=== PATIENT | male | born 1945 | race Caucasian/White ===

== ENCOUNTER → 2016-11-08 | Outpatient (CLI) | payer MEDICARE ==
--- NOTE | 2016-11-08 13:28 | REP ---
THORACIC SPINE, THREE VIEWS: HISTORY: Back pain. There is no acute fracture or subluxation. There is an old compression fracture of a mid thoracic vertebral body with minimal height loss. The intervertebral discs are normal in height. IMPRESSION: There is no acute fracture or subluxation. Signed by Ricki Son MD 11/08/2016 01:31 P
== END ==
LOC: M RAD 12:26
PROVIDERS: ATTEND Physician Assistant
DX: M54.6 Pain in thoracic spine (principal)

== ENCOUNTER → 2017-01-15 | Outpatient (REF) | payer MEDICARE ==
[2017-01-15 19:15] LABS: BLOOD UREA NITROGEN 21 MG/DL (7-18); CREATININE FOR GFR 0.95 MG/DL (0.70-1.30); GLOMERULAR FILTRATION RATE > 60.0 (>42)
== END ==
LOC: M LAB REF 10:32
PROVIDERS: ATTEND Internal Medicine Pulmonary Disease
DX: J43.1 Panlobular emphysema (principal)

== ENCOUNTER → 2017-01-15 | Outpatient (REF) | payer MEDICARE ==
[~2017-01-15] MED LIST: ALBU17IN PO; BACT800T5 PO; FLUT22IN; FLUT22IN INH; LUPR45IN SC; OMEP20CA3; OMEP20CA3 PO; PRED10TA PO; SPIR12.9; SPIR12.9 INH; ZITHTAB PO
[2017-01-15 18:19] LABS: BASO % 0.5 % (0.0-1.0); EOS % 0.7 % (0.0-3.0); LARGE UNSTAINED CELL # 0.2 K/mm3 (0.0-0.4); LARGE UNSTAINED CELL % 2.2 % (0.0-4.0); LYMPH # 1.9 K/mm3 (1.5-4.5); LYMPH % 24.5 % (24.0-44.0); MEAN CORPUSCULAR HEMOGLOBIN 28.4 pg (27.0-33.0); MEAN CORPUSCULAR HGB CONC 31.3 g/dl (32.0-36.5); MEAN CORPUSCULAR VOLUME 90.5 fl (80.0-96.0); MONO # 0.5 K/mm3 (0.0-0.8); MONO % 6.8 % (0.0-5.0); NEUTROPHILS % 65.3 % (36.0-66.0); PLATELET COUNT, AUTOMATED 143 k/mm3 (150-450); WHITE BLOOD COUNT 7.7 K/mm3 (4.0-10.0)
[2017-01-15 19:18] LABS: ALBUMIN 3.6 GM/DL (3.2-5.2); ALBUMIN/GLOBULIN RATIO 1.33 (1.00-1.93); ALKALINE PHOSPHATASE 78 U/L (45-117); ALT/SGPT 29 U/L (12-78); ANION GAP 5 MEQ/L (8-16); AST/SGOT 15 U/L (15-37); BILIRUBIN,TOTAL 0.5 MG/DL (0.2-1.0); BLOOD UREA NITROGEN 21 MG/DL (7-18); CALCIUM LEVEL 9.8 MG/DL (8.8-10.2); CARBON DIOXIDE LEVEL 38 MEQ/L (21-32); CHLORIDE LEVEL 101 MEQ/L (98-107); CHOLESTEROL LEVEL 225 MG/DL (<200); CREATININE FOR GFR 0.93 MG/DL (0.70-1.30); FREE T4 0.99 NG/DL (0.76-1.46); GLOMERULAR FILTRATION RATE > 60.0 (>42); GLUCOSE, FASTING 92 MG/DL (83-110); POTASSIUM SERUM 4.3 MEQ/L (3.5-5.1); SODIUM LEVEL 144 MEQ/L (136-145); TOTAL PROTEIN 6.3 GM/DL (6.4-8.2); TRIGLYCERIDES LEVEL 122 MG/DL (<150)
== END ==
LOC: M SFHCCAPE 09:44
PROVIDERS: ATTEND Physician Assistant
DX: E66.1 Drug-induced obesity (principal); E55.9 Vitamin D deficiency, unspecified; Z79.52 Long term (current) use of systemic steroids; Z79.891 Long term (current) use of opiate analgesic; Z79.899 Other long term (current) drug therapy
CPT/HCPCS: 80053; 80061; 82565; 84439; 84443; 84520; 85025; G0463

== ENCOUNTER → 2017-02-17 | Outpatient (REF) | payer MEDICARE | LOC: M LAB REF 16:41 | PROVIDERS: ATTEND Urology | DX: C61 Malignant neoplasm of prostate (principal) ==

== ENCOUNTER 2017-02-27 12:39 | Inpatient (IN) | payer MEDICARE ==
[~2017-02-27] VITALS: Ht 170.2 cm; Wt 74.1 kg
[2017-02-27] MEDS ORDERED: OMEP20CA3 (12:54)
[2017-02-27] MEDS ORDERED: LUPR45IN SC (12:54)
[2017-02-27] MEDS ORDERED: BACT800T5 PO (12:54)
[2017-02-27] MEDS ORDERED: PRED10TA PO (12:54)
[2017-02-27] MEDS ORDERED: SPIR12.9 (12:54)
[2017-02-27] MEDS ORDERED: ALBU17IN PO (12:54)
[2017-02-27] MEDS ORDERED: FLUT22IN (12:54)
[2017-02-27] MEDS ORDERED: methylPREDNISolone INJ 125 MG/2 ML VIAL (J2930) IV ONE (13:00)
[2017-02-27] MEDS: IPRATROPIUM 0.5MG/ALBUTEROL 2.5MG INH SOL UD 3ML (DUONEB)(J7620) NEB PRN ×2 (13:22→13:31)
[2017-02-27 13:23] LABS: BASO % 0.4 % (0.0-1.0); EOS % 0.5 % (0.0-3.0); LARGE UNSTAINED CELL # 0.1 K/mm3 (0.0-0.4); LARGE UNSTAINED CELL % 0.6 % (0.0-4.0); LYMPH % 8.3 % (24.0-44.0); MEAN CORPUSCULAR HEMOGLOBIN 29.8 pg (27.0-33.0); MEAN CORPUSCULAR HGB CONC 33.6 g/dl (32.0-36.5); MEAN CORPUSCULAR VOLUME 88.7 fl (80.0-96.0); MONO # 0.4 K/mm3 (0.0-0.8); MONO % 3.3 % (0.0-5.0); NEUTROPHILS # 10.2 K/mm3 (1.8-7.7); NEUTROPHILS % 86.9 % (36.0-66.0); PLATELET COUNT, AUTOMATED 193 k/mm3 (150-450); RED CELL DISTRIBUTION WIDTH 13.6 % (11.5-14.5); WHITE BLOOD COUNT 11.7 K/mm3 (4.0-10.0)
[2017-02-27 13:31] LABS: ABG BASE EXCESS 3.1 (-2.0-2.0); ABG HCO3 28.3 MEQ/L (22.0-26.0); ABG PARTIAL PRESSURE CO2 45.2 mmHg (35.0-45.0); ABG PARTIAL PRESSURE O2 145.9 mmHg (75.0-100.0); ABG STANDARD HCO3 27.3 MEQ/L (22.0-26.0); ABG TOTAL CO2 29.7 MEQ/L (23.0-31.0); ABG pH (ARTERIAL) 7.414 UNITS (7.350-7.450)
[2017-02-27 13:37] LABS: ANION GAP 8 MEQ/L (8-16); BLOOD UREA NITROGEN 25 MG/DL (7-18); CALCIUM LEVEL 9.1 MG/DL (8.8-10.2); CARBON DIOXIDE LEVEL 30 MEQ/L (21-32); CHLORIDE LEVEL 102 MEQ/L (98-107); CREATININE FOR GFR 1.09 MG/DL (0.70-1.30); GLOMERULAR FILTRATION RATE > 60.0 (>42); GLUCOSE, FASTING 147 MG/DL (83-110); POTASSIUM SERUM 4.4 MEQ/L (3.5-5.1); SODIUM LEVEL 140 MEQ/L (136-145)
[2017-02-27 13:42] LABS: ALBUMIN 3.6 GM/DL (3.2-5.2); ALBUMIN/GLOBULIN RATIO 1.09 (1.00-1.93); ALKALINE PHOSPHATASE 88 U/L (45-117); ALT/SGPT 27 U/L (12-78); AST/SGOT 13 U/L (15-37); BILIRUBIN,DIRECT < 0.1 MG/DL (0.0-0.2); BILIRUBIN,TOTAL 0.4 MG/DL (0.2-1.0); TOTAL PROTEIN 6.9 GM/DL (6.4-8.2)
--- NOTE | 2017-02-27 13:57 | REP ---
CHEST, PORTABLE: AP portable view of the chest is performed and compared to prior study of 06/26/2015. There is chronic interstitial fibrosis, which appears stable. There is no acute infiltrate. Heart is normal in size. There is mild calcification of thoracic aorta. Mediastinal silhouette is unchanged. IMPRESSION: Stable chronic findings without evidence of acute infiltrate. Signed by Mat Joseph MD 02/27/2017 04:22 P
[2017-02-27] MEDS ORDERED: SPIR12.9 INH (15:19)
[2017-02-27] MEDS ORDERED: OMEP20CA3 PO (15:19)
[2017-02-27] MEDS ORDERED: FLUT22IN INH (15:19)
[2017-02-27] MEDS ORDERED: ALBUTEROL SULFATE 2.5 MG/0.5 ML INH NEB SOLN NEB PRN (15:45)
[2017-02-27] MEDS ORDERED: ISOVUE-370 76% 100ML VIAL (Q9967) As Ordered ONE (15:52)
[2017-02-27] MEDS ORDERED: ACETAMINOPHEN TAB 650MG DOSE (2X325MG) PO PRN (16:00)
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
[2017-02-27] MEDS ORDERED: AZITHROMYCIN INJ 500 MG, VIAL MATE ADAPTER 1 EACH in D5W 250 ML IV SCH (17:00)
--- NOTE | 2017-02-27 18:28 | REP ---
CT ANGIO CHEST: REASON: History of malignancy. Now experiencing acute respiratory distress, rule out pulmonary embolus. COMPARISON: 06/26/2015. CONTRAST: 100 mL Isovue-370. There is excellent visualization of the pulmonary arterial vasculature. There are no focal filling defects present that would be considered consistent with acute pulmonary emboli. There are no pleural or pericardiac effusions. There is no change in appearance of the imaged upper abdomen or imaged osseous structures. Evaluation of the lung garcia again shows emphysematous and fibrotic changes status quo and showing no evidence of a new abnormal nodule, mass, or opacity. There is chronic biapical pleural parenchymal scarring. IMPRESSION: 1. No evidence of a pulmonary embolus. 2. Marked chronic changes having a stable appearance. Signed by Khadar Woodruff DO 02/28/2017 11:59 A
[2017-02-27 18:59] VITALS: BP 191/89
[2017-02-27 20:12] VITALS: BP 134/84
[2017-02-27] MEDS: predniSONE 20 MG TAB PO SCH (20:52)
[2017-02-27] MEDS: cefTRIAXone SOD 2 GM in D5W MINI-BAG PLUS 50 ML IV SCH (20:52)
[2017-02-27] MEDS: NS 1,000 ML IV SCH (20:53)
[2017-02-27] MEDS: FLUTICASONE HFA 220 MCG 12 GM INHALER (FLOVENT) INH SCH (21:00)
[2017-02-27] MEDS ORDERED: ADVAIR DISKUS 250/50 INH PWD INH SCH (21:00)
[2017-02-28] VITALS: BP 130/83
[2017-02-28 04:00] VITALS: BP 141/83
[2017-02-28 04:54] LABS: MEAN CORPUSCULAR HEMOGLOBIN 29.3 pg (27.0-33.0); MEAN CORPUSCULAR HGB CONC 33.1 g/dl (32.0-36.5); MEAN CORPUSCULAR VOLUME 88.7 fl (80.0-96.0); RED CELL DISTRIBUTION WIDTH 13.5 % (11.5-14.5); WHITE BLOOD COUNT 10.1 K/mm3 (4.0-10.0)
[2017-02-28 05:17] LABS: ANION GAP 3 MEQ/L (8-16); BLOOD UREA NITROGEN 24 MG/DL (7-18); CALCIUM LEVEL 8.4 MG/DL (8.8-10.2); CARBON DIOXIDE LEVEL 35 MEQ/L (21-32); CHLORIDE LEVEL 101 MEQ/L (98-107); GLOMERULAR FILTRATION RATE > 60.0 (>42); GLUCOSE, FASTING 137 MG/DL (83-110); POTASSIUM SERUM 4.5 MEQ/L (3.5-5.1); SODIUM LEVEL 139 MEQ/L (136-145)
[2017-02-28] MEDS: cefTRIAXone SOD 2 GM in D5W MINI-BAG PLUS 50 ML IV SCH (05:21)
[2017-02-28 07:10] VITALS: BP 138/92
[2017-02-28] MEDS ORDERED: OMEPRAZOLE 20 MG CAP PO SCH (09:00)
[2017-02-28] MEDS: predniSONE 20 MG TAB PO SCH (09:00)
[2017-02-28] MEDS ORDERED: ENOXAPARIN 40 MG/0.4 ML SYRINGE (J1650) SC SCH (09:00)
--- NOTE | 2017-02-28 09:30 | ECGEPIP ---
Stationary ECG Study [facility] - ED Test Date: 2017-02-27 Pat Name: SANG DOLAN Department: Room: - Gender: M Java [id number] Lead: VISHAL : 1945 Requested By: KAUSHAL CUBAP Order Number: [id number] Reading MD: Charlene Keys Measurements Intervals [place] Rate: 119 P: 76 CO: 164 QRS: -20 QRSD: 94 T: 65 QT: 300 QTc: 422 Interpretive Statements SINUS TACHYCARDIA POSSIBLE INFERIOR MYOCARDIAL INFARCTION, PROBABLY OLD ABNORMAL RHYTHM ECG LOW VOLTAGE LIMB NSTTW ABNORMALITY INCREASED RATE 06/27/15 Electronically Signed On 02-28-2017 9:30:42 EDT by Charlene Keys
[2017-02-28] MEDS: NS 1,000 ML IV SCH (09:57)
[2017-02-28] MEDS ORDERED: ZITHTAB PO (10:14)
[2017-02-28] MEDS ORDERED: PRED10TA PO (10:14)
[2017-02-28] MEDS: FLUTICASONE HFA 220 MCG 12 GM INHALER (FLOVENT) INH SCH (11:24)
--- NOTE | 2017-03-01 22:59 | DSES ---
DATE OF ADMISSION: 02/27/2017 DATE OF DISCHARGE: 02/28/2017 DISCHARGE DIAGNOSES 1. Chronic obstructive pulmonary disease exacerbation. 2. History of prostate cancer, status post prostatectomy and radiation. 3. History of bladder cancer. 4. Chronic hypoxic respiratory failure requiring 2 liters of nasal cannula at baseline. DISCHARGE MEDICATIONS - azithromycin 250 mg by mouth daily - Ventolin inhaler two puffs every 4 hours as needed - Flovent two puffs inhaled twice daily - Lupron one dose as directed - omeprazole 20 mg by mouth daily - Spiriva 2.5 mcg two puffs inhaled daily - Bactrim DS one tablet by mouth three times a week - prednisone taper BRIEF HOSPITAL COURSE: The patient presented with complaints of increased shortness of breath. At baseline he uses 2 liters of nasal cannula. He did not have any symptoms of cough, sputum production, chest pain, shortness of breath, lightheadedness, dizziness, fevers, chills on presentation. No gastrointestinal (GI) or genitourinary () symptoms. The patient was admitted to the floor for closer monitoring. He was given higher dose of prednisone as well as antibiotics. He was given fluids. On day of discharge, the patient reports that he felt significantly better. He reported that his breathing was back to baseline. No fevers, chills, chest pain/pressure, nausea, vomiting, lightheadedness, dizziness, diarrhea, abdominal pain. No urinary complaints. The patient reported that he felt well enough to go home. LABORATORY DATA: WBC 10.1, hemoglobin 11.7, hematocrit 35.4, platelet count 163. Sodium 139, potassium 4.5, chloride 101, carbon dioxide 35, anion gap 3, BUN 24, creatinine 0.9, GFR greater than 60, fasting glucose 137, calcium 8.4. Microbiology: Respiratory panel was negative. Blood cultures pending. IMAGING STUDIES: The patient had a chest x-ray, which revealed chronic interstitial fibrosis, which was stable. No acute infiltrate. Mild calcification of thoracic aorta. CT angiogram showed no evidence of pulmonary embolism. Marked chronic changes that were stable. PHYSICAL EXAMINATION: VITAL SIGNS: Temperature 98.3, pulse 101, respiratory rate 20, blood pressure 138/92, pulse oximetry 98% on 2 liters. GENERAL: The patient is awake and alert in no acute distress. HEENT: Normocephalic, atraumatic. Extraocular muscles are intact. Pupils are reactive to light. No scleral icterus. Moist mucosa. NECK: Supple. No cervical lymphadenopathy. No thyromegaly. No jugular venous distension. HEART: Normal S1, S2, regular. No murmur appreciated. LUNGS: Fair air movement bilaterally. No rhonchi or wheezing appreciated. ABDOMEN: Soft, nontender. Positive bowel sounds. No rebound, guarding or rigidity. EXTREMITIES: No cyanosis or edema. Positive pedal pulses bilaterally. SKIN: Warm and dry. No rashes noted. NEUROLOGIC: No focal deficits. Cranial nerves: II-XII are grossly intact. Motor and sensation intact. Alert and oriented times three. DISCHARGE INSTRUCTIONS: The patient is discharged in stable condition. He should followup with his primary care physician within 1 week. The patient reports that he is going out of town and will make his own appointment for his primary care provider. He has an upcoming appointment with Dr. Gamble on March 25. He should be on a COPD diet. Activity as tolerated. Return to emergency department with any worsening or recurring symptoms. THINGS TO FOLLOWUP ON: Patient had blood cultures that are pending. He was on a prednisone taper previous to this admission. Taper has been adjusted. 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 TIME SPENT ON DISCHARGE: Greater than 30 minutes and of the patient.
== END 2017-02-28 13:17 | disposition home or self-care (01) | DRG 189 ==
LOC: M ED 13:54 → M ED INP 15:40 → M PCU 18:44
PROVIDERS: ADMIT Internal Medicine; ATTEND Internal Medicine
DX: J96.11 Chronic respiratory failure with hypoxia (principal); J44.1 Chronic obstructive pulmonary disease with (acute) exacerbation; Z85.46 Personal history of malignant neoplasm of prostate; Z85.51 Personal history of malignant neoplasm of bladder; Z92.3 Personal history of irradiation; Z90.79 Acquired absence of other genital organ(s); Z79.899 Other long term (current) drug therapy; Z87.891 Personal history of nicotine dependence; Z66 Do not resuscitate

== ENCOUNTER → 2017-06-26 | Outpatient (REF) | payer MEDICARE ==
[~2017-06-26] MED LIST changes: +ALBU83IN INH; +GABA-282 PO; -PRED10TA PO; +PRED10TA2 PO; +PRED20TA PO; +PYRI1TAB5 PO
== END ==
LOC: M LAB REF 13:31
PROVIDERS: ATTEND Urology
DX: C67.9 Malignant neoplasm of bladder, unspecified (principal); C61 Malignant neoplasm of prostate

== ENCOUNTER → 2017-06-26 | Outpatient (REF) | payer MEDICARE ==
[2017-06-26 18:07] LABS: ALBUMIN 3.7 GM/DL (3.2-5.2); ALBUMIN/GLOBULIN RATIO 1.28 (1.00-1.93); ALKALINE PHOSPHATASE 117 U/L (45-117); ALT/SGPT 24 U/L (12-78); ANION GAP 7 MEQ/L (8-16); AST/SGOT 13 U/L (15-37); BILIRUBIN,TOTAL 0.4 MG/DL (0.2-1.0); BLOOD UREA NITROGEN 19 MG/DL (7-18); CALCIUM LEVEL 9.1 MG/DL (8.8-10.2); CARBON DIOXIDE LEVEL 33 MEQ/L (21-32); CHLORIDE LEVEL 100 MEQ/L (98-107); CREATININE FOR GFR 0.96 MG/DL (0.70-1.30); GLOMERULAR FILTRATION RATE > 60.0 (>42); GLUCOSE, FASTING 125 MG/DL (83-110); POTASSIUM SERUM 4.4 MEQ/L (3.5-5.1); SODIUM LEVEL 140 MEQ/L (136-145); TOTAL PROTEIN 6.6 GM/DL (6.4-8.2)
[2017-06-26 18:08] LABS: MYOGLOBIN 76 NG/ML (16-116)
== END ==
LOC: M SFHCCAPE 17:42
PROVIDERS: ATTEND Physician Assistant
DX: R07.9 Chest pain, unspecified (principal); G89.29 Other chronic pain; C61 Malignant neoplasm of prostate
CPT/HCPCS: 80053; 82550; 82553; 83874; 84153; 84484; G0463

== ENCOUNTER 2017-07-18 18:49 | Emergency (ER) | payer MEDICARE ==
[~2017-07-18] VITALS: Ht 170.2 cm; Wt 80.0 kg
[~2017-07-18 18:49] MED LIST changes: -ALBU83IN INH; -GABA-282 PO; -PRED20TA PO; -PYRI1TAB5 PO
[2017-07-18] MEDS ORDERED: ALBU83IN INH (19:02)
[2017-07-18] MEDS ORDERED: GABA-282 PO (19:02)
[2017-07-18] MEDS ORDERED: IPRATROPIUM 0.5MG/ALBUTEROL 2.5MG INH SOL UD 3ML (DUONEB)(J7620) As Ordered ONE (19:14)
[2017-07-18] MEDS ORDERED: ASPIRIN 81 MG CHEW TABLET PO ONE (19:15)
[2017-07-18] MEDS ORDERED: methylPREDNISolone INJ 125 MG/2 ML VIAL (J2930) IV ONE (19:15)
[2017-07-18] MEDS: IPRATROPIUM 0.5MG/ALBUTEROL 2.5MG INH SOL UD 3ML (DUONEB)(J7620) NEB PRN ×3 (19:19→19:54)
--- NOTE | 2017-07-18 19:47 | REP ---
Chest one-view HISTORY: Dyspnea Comparison: 02/27/2017 A minimal increase in interstitial markings is present in the lungs consistent with chronic interstitial fibrosis. The heart is normal in size. The pulmonary vasculature is normal in appearance. Impression: Chronic interstitial fibrosis. Signed by Ricki Son MD 07/18/2017 07:39 P
[2017-07-18 19:59] LABS: ABG BASE EXCESS 4.6 (-2.0-2.0); ABG HCO3 29.6 MEQ/L (22.0-26.0); ABG PARTIAL PRESSURE CO2 45.7 mmHg (35.0-45.0); ABG PARTIAL PRESSURE O2 143.2 mmHg (75.0-100.0); ABG STANDARD HCO3 28.6 MEQ/L (22.0-26.0); ABG pH (ARTERIAL) 7.429 UNITS (7.350-7.450)
[2017-07-18 20:22] LABS: BASO % 0.5 % (0.0-1.0); EOS # 0.2 10^3/uL (0.0-0.50); EOS % 1.9 % (0.0-3.0); IMMATURE GRANULOCYTE % 0.6 % (0-0); LYMPH # 1.7 10^3/uL (1.5-4.5); LYMPH % 20.2 % (24.0-44.0); MEAN CORPUSCULAR HEMOGLOBIN 27.1 pg (27.0-33.0); MEAN CORPUSCULAR HGB CONC 31.5 g/dl (32.0-36.5); MEAN CORPUSCULAR VOLUME 86.1 fl (80.0-96.0); MONO # 0.5 10^3/uL (0.0-0.8); MONO % 5.9 % (0.0-5.0); NEUTROPHILS # 6.1 10^3/uL (1.8-7.7); NEUTROPHILS % 70.9 % (36.0-66.0); PLATELET COUNT, AUTOMATED 212 10^3/uL (150-450); RED CELL DISTRIBUTION WIDTH 13.3 % (11.5-14.5); WHITE BLOOD COUNT 8.5 10^3/uL (4.0-10.0)
[2017-07-18 20:24] LABS: ADD MORPHOLOGY? NO
[2017-07-18 21:21] LABS: ALBUMIN 3.4 GM/DL (3.2-5.2); ALBUMIN/GLOBULIN RATIO 1.06 (1.00-1.93); ALKALINE PHOSPHATASE 92 U/L (45-117); ALT/SGPT 18 U/L (12-78); ANION GAP 5 MEQ/L (8-16); AST/SGOT 11 U/L (15-37); BILIRUBIN,DIRECT < 0.1 MG/DL (0.0-0.2); BILIRUBIN,TOTAL 0.2 MG/DL (0.2-1.0); BLOOD UREA NITROGEN 24 MG/DL (7-18); CALCIUM LEVEL 9.4 MG/DL (8.8-10.2); CARBON DIOXIDE LEVEL 32 MEQ/L (21-32); CHLORIDE LEVEL 104 MEQ/L (98-107); CREATININE FOR GFR 0.82 MG/DL (0.70-1.30); GLOMERULAR FILTRATION RATE > 60.0 (>42); GLUCOSE, FASTING 116 MG/DL (83-110); POTASSIUM SERUM 3.2 MEQ/L (3.5-5.1); SODIUM LEVEL 141 MEQ/L (136-145); TOTAL PROTEIN 6.6 GM/DL (6.4-8.2)
[2017-07-18] MEDS ORDERED: PRED10TA2 PO (21:54)
[2017-07-18] MEDS ORDERED: POTASSIUM CHLORIDE 10 MEQ SR TABLET PO ONE (22:45)
[2017-07-18 22:58] LABS: MAGNESIUM LEVEL 1.8 MG/DL (1.8-2.4)
[2017-07-18] MEDS ORDERED: PRED20TA PO (23:18)
[2017-07-18 23:23] VITALS: BP 113/69
--- NOTE | 2017-07-19 00:08 | CR.PDOC ---
[facility] Consultation Consultation Hospitalist Consult Note Date of Consultation: 07/18/2017 Reason for Consultation: COPD exacerbation Referring Provider: Dr. 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 Gamble HISTORY OF PRESENT ILLNESS: Mr. Serrano is a 72-year-old male who presented to the emergency department with increasing shortness of breath worsening over the past 2 days. He does take his inhalers as prescribed, but states that he does not usually take his nebulizers. He states that the heat of the past few days has been making his breathing worse. Finally earlier this afternoon he decided to attempt one treatment with a nebulizer, after about 1 hour he did not feel that he was significantly improved and therefore he presented to the emergency department. In the emergency department he was given 60 mg IV Solu-Medrol as well as 3 breathing treatments. By the time I came to evaluate the patient he was feeling significantly better. He was able to sit up the edge of bed, he is maintaining his saturations, and he did not appear to be in any acute distress. He is accompanied in the room by both his and his daughter, and they agreed that if he had taken his nebulizers as as he should have, he likely would not have needed to come into the emergency department at all. They also understand and agree to try and help him continue to take his nebulizers at home , especially when his breathing becomes worse. ALLERGIES: No known drug allergies PAST MEDICAL HISTORY: Bladder cancer Prostate cancer status post prostatectomy COPD, on 2 L nasal cannula at home PAST SURGICAL HISTORY: Prostatectomy in 2006 Right shoulder repair in 2015 Right knee repair in 2002 Bilateral cataract surgery Nose reconstruction in 1983 SOCIAL HISTORY: He smoked half pack per day for more than 60 years. Denies alcohol use. Denies recreational drug use. FAMILY HISTORY: Noncontributory REVIEW OF SYSTEMS: Constitutional: Patient denies fevers, chills, night sweats, recent weight gain/ loss. HEENT: Patient denies blurred or double vision, transient visual disturbances, postnasal drip, epistaxis, sore throat, difficulty chewing or swallowing food. Cardiovascular: Patient denies chest discomfort/pain, palpitations, exertional dyspnea, orthopnea, edema of the extremities, claudication. Respiratory: Patient denies dyspnea, wheezing, cough, hemoptysis, sputum production. Gastrointestinal: Patient denies nausea, vomiting, diarrhea, constipation, abdominal pain, melena, hematochezia, hematemesis, jaundice. Musculoskeletal: Patient denies joint stiffness, pain, swelling Endocrine: Patient denies polyuria, polydipsia, polyphagia. PHYSICAL EXAMINATION: General: Awake, alert, appears to be in no acute distress. He is not using any accessory muscles. He is able to sit up and take multiple deep breaths without becoming short of breath. HEENT: Head normocephalic atraumatic, conjunctiva are pink, sclera are nonicteric, buccal mucosa is pink and moist with no lesions in the oropharynx. He is edentulous. Hearing is grossly intact to conversation. Respiratory: Diminished throughout with minimal end expiratory wheeze Cardiovascular: Regular rate and rhythm, with no rubs, gallops, or murmur. Abdomen: Soft, nontender, nondistended, no hepatosplenomegaly appreciated. Bowel sounds present. Extremities: 2+ pulses in the radial and dorsalis pedis bilaterally. No evidence cyanosis. He does exhibit some mild clubbing of the fingers and toes. ASSESSMENT: 1. Acute exacerbation of COPD 2. Mild hypokalemia RECOMMENDATIONS: It appears that the patient has improved significantly with the 3 nebulizer treatments and a dose of Solu-Medrol. 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 He was given one dose of 40 mEq PO of potassium for his mild hypokalemia , recommend a follow-up BMP and magnesium as an outpatient. My preceptor for this patient encounter was physically present in the building during the encounter and was fully available. As needed, all aspects of the patient interview, examination, medical decision making process, and medical care plan development were reviewed and approved by the preceptor. Preceptor is aware and concurs with the plan as stated in the body of this note and will attest to such by his/her cosignature. Vital Signs/I&O Vital Signs Date Time Temp Pulse Resp B/P (MAP) Pulse Ox O2 Delivery O2 Flow Rate FiO2 07/18/17 23:23 97.0 103 20 113/69 (84) 97 Nasal Cannula 2.0 Laboratory Data Labs 24H Laboratory Tests 2 07/18/17 19:51: Blood Gas Bicarbonate Standard 28.6H, Arterial Blood pH 7.429, Arterial Blood Partial Pressure CO2 45.7H, Arterial Blood Partial Pressure O2 143.2H, Arterial Blood Total CO2 31.0, Arterial Blood HCO3 29.6H, Arterial Blood Base Excess 4.6H , Arterial Blood Oxygen Saturation 98.9 07/18/17 20:06: White Blood Count 8.5, Red Blood Count 4.46, Hemoglobin 12.1L, Hematocrit 38.4L , Mean Corpuscular Volume 86.1, Mean Corpuscular Hemoglobin 27.1, Mean Corpuscular Hemoglobin Concent 31.5L, Red Cell Distribution Width 13.3, Platelet Count 212, Neutrophils (%) (Auto) 70.9H, Lymphocytes (%) (Auto) 20.2L, Monocytes (%) (Auto) 5.9H, Eosinophils (%) (Auto) 1.9, Basophils (%) (Auto) 0.5 , Neutrophils # (Auto) 6.1, Lymphocytes # (Auto) 1.7, Monocytes # (Auto) 0.5, Eosinophils # (Auto) 0.2, Basophils # (Auto) 0.0, Immature Granulocyte # (Auto) 0.1H, Nucleated Red Blood Cells % (auto) 0.0 07/18/17 20:42: Anion Gap 5L, Glomerular Filtration Rate > 60.0, Lactic Acid Level 1.1, Calcium Level 9.4, Magnesium Level 1.8, Aspartate Amino Transf (AST/SGOT) 11L, Alanine Aminotransferase (ALT/SGPT) 18, Alkaline Phosphatase 92, Total Bilirubin 0.2, Direct Bilirubin < 0.1, Total Creatine Kinase 43, Creatine Kinase MB 1.3, Creatine Kinase MB Relative Index 3.02, Troponin I < 0.02, C-Reactive Protein, Quantitative < 0.30, [id number]-Type Natriuretic Peptide 119, Total Protein 6.6, Albumin 3.4, Albumin/Globulin Ratio 1.06 CBC/BMP Laboratory Tests 07/18/17 20:06 Red Blood Count 4.46, Mean Corpuscular Volume 86.1, Mean Corpuscular Hemoglobin 27.1, Mean Corpuscular Hemoglobin Concent 31.5 L, Red Cell Distribution Width 13.3, Neutrophils (%) (Auto) 70.9 H, Lymphocytes (%) (Auto) 20.2 L, Monocytes (% ) (Auto) 5.9 H, Eosinophils (%) (Auto) 1.9, Basophils (%) (Auto) 0.5, Neutrophils # (Auto) 6.1, Lymphocytes # (Auto) 1.7, Monocytes # (Auto) 0.5, Eosinophils # (Auto) 0.2, Basophils # (Auto) 0.0 07/18/17 20:42 Allergies Coded Allergies: No Known Drug Allergy (Verified Allergy, Unknown, 02/27/17) Home Medications Scheduled Fluticasone Propionate (Flovent Hfa 220 MCG) 120 Puff/12 Gm Aero, 2 PUFF INH BID , (Reported) Gabapentin (Gabapentin) 300 Mg Cap, 300 MG PO DAILY, (Reported) Leuprolide Acetate (Lupron Depot) 45 Mg Inj, 1 DOSE SC ASDIRECTED, (Reported) DUE 09/17/17 EVERY 6 MONTHS Omeprazole (Omeprazole) 20 Mg Cap, 20 MG PO DAILY, (Reported) Prednisone (Prednisone) 10 Mg Tab, 10 MG PO DAILY, (Reported) Prednisone (Prednisone) 20 Mg Tab, 20 MG PO DAILY for 10 Days, #10 Tiotropium Kirby Monohydrate (Spiriva Respimat) 2.5 Mcg/Act Spr, 2 PUFFS INH DAILY, (Reported) Scheduled PRN Albuterol Sulfate (Ventolin Hfa) 200 Puff/8 Gm Aers, 2 PUFFS PO Q4H PRN for SHORTNESS OF BREATH, (Reported) Albuterol Sulfate (Albuterol Sulfate) 2.5 Mg/3 Ml Nebu, 1 VIAL INH QID PRN for SHORTNESS OF BREATH, (Reported) GME ATTESTATION GME ATTESTATION My preceptor for this patient encounter was physically present in the building during the encounter and was fully available. As needed, all aspects of the patient interview, examination, medical decision making process, and medical care plan development were reviewed and approved by the preceptor. Preceptor is aware and concurs with the plan as stated in the body of this note and will attest to such by his/her cosignature. ATTENDING NOTE I have both independently examined this patient as well as reviewed the consult. I have discussed in detail with the resident the findings and plan of treatment as documented in the residents note. I will continue to follow the patient and offer further guidance to the patients care as necessary during this hospital stay. GAMA CHICAS DO Jul 19, 2017 00:08 MARGARITA BRUNO MD Jul 19, 2017 18:54
--- NOTE | 2017-07-19 08:31 | ECGEPIP ---
Stationary ECG Study 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
[2017-07-20] MEDS ORDERED: PYRI1TAB5 PO (17:05)
== END 2017-07-19 00:03 | disposition home or self-care (01) ==
LOC: M ED 18:49
DX: J44.1 Chronic obstructive pulmonary disease with (acute) exacerbation (principal)
CPT/HCPCS: 36600; 71010; 80048; 80076; 82550; 82553; 82803; 83605; 83735; 83880; 84484; 85025; 86140; 93005; 93041; 94640; 94760; 96374; 99284; J2930

== ENCOUNTER 2017-07-20 14:00 | Emergency (ER) | payer MEDICARE ==
[~2017-07-20] VITALS: Ht 170.2 cm; Wt 176.0 kg
[~2017-07-20 14:00] MED LIST changes: +ALBU83IN INH; +GABA-282 PO; +PRED20TA PO
[2017-07-20 15:44] LABS: MEAN CORPUSCULAR HGB CONC 30.8 g/dl (32.0-36.5); MEAN CORPUSCULAR VOLUME 87.6 fl (80.0-96.0); PLATELET COUNT, AUTOMATED 216 10^3/uL (150-450); RED CELL DISTRIBUTION WIDTH 13.6 % (11.5-14.5); WHITE BLOOD COUNT 12.4 10^3/uL (4.0-10.0)
[2017-07-20 15:45] LABS: ADD MANUAL DIFFER YES; DIFF SLIDE NUMBER 135
[2017-07-20 16:08] LABS: ANION GAP 9 MEQ/L (8-16); BLOOD UREA NITROGEN 30 MG/DL (7-18); CALCIUM LEVEL 9.2 MG/DL (8.8-10.2); CARBON DIOXIDE LEVEL 27 MEQ/L (21-32); CHLORIDE LEVEL 105 MEQ/L (98-107); CREATININE FOR GFR 0.95 MG/DL (0.70-1.30); GLOMERULAR FILTRATION RATE > 60.0 (>42); GLUCOSE, FASTING 122 MG/DL (83-110); SODIUM LEVEL 141 MEQ/L (136-145)
[2017-07-20 16:42] VITALS: BP 132/87
[2017-07-20] MEDS ORDERED: PYRI1TAB5 PO (17:05)
[2017-07-20] MEDS ORDERED: PHENAZOPYRIDINE 100 MG TAB PO ONE (17:15)
--- NOTE | 2017-07-21 06:36 | REP ---
SCROTAL ULTRASOUND: HISTORY: Left scrotal pain. The right testis measures 3.7 x 1.1 x 2.7 cm. The left testis measures 3.3 x 1.2 x 2.3 cm. The right epididymis measures 12.2 mm. A 10 mm cyst is present in the head of the right epididymis. The left epididymis measures 9 mm. The testicles are slightly heterogeneous in echogenicity. There is no mass. IMPRESSION: 10 mm right epididymal cyst. Signed by Ricki Son MD 07/21/2017 08:56 A
--- NOTE | 2017-07-21 06:36 | REP ---
CT ABDOMEN AND PELVIS WITHOUT CONTRAST: HISTORY: Left testicular pain. Several small hypodensities are present in the liver. The largest measures 7 mm. These most likely represent cysts. Calcifications are present in the spleen. A 2.6 cm cyst is present in the upper pole of the right kidney. Calcification is present in the right kidney consistent with nephrolithiasis. There is no left nephrolithiasis. There is minimal dilatation of the left ureter. The gallbladder, pancreas and adrenal glands are normal in appearance. There is no mass, adenopathy or free fluid. A 1.2 cm parenchymal nodule is present in the left lower lobe, new compared to a previous CT angio chest. Linear density is present in the left lower lobe consistent with scar. Diverticula are present in the sigmoid colon. The patient is status post prostatectomy. The urinary bladder is small in size. The bladder wall appears thickened. Two small calcifications are present in the urinary bladder. Degenerative change is present in the spine. IMPRESSION: 1. There are several small hypodensities in the liver that most likely represent cysts. 2. 2.6 cm right renal cyst. 3. Right nephrolithiasis. 4. The patient is status post prostatectomy. 5. The urinary bladder wall is thickened. Two small calcifications are present in the urinary bladder. There is minimal dilatation of the left ureter. The calcifications may be secondary to previous surgery or may represent passed renal stones. 6. There is a new 1.5 cm parenchymal nodule in the left lower lobe. Repeat CT chest may be helpful for further evaluation. Signed by Ricki Son MD 07/21/2017 08:58 A
--- NOTE | 2017-07-23 12:54 | ED PDOC ---
Post-Departure Follow-Up [facility] faxed formal report of scrotal us for fu Jaki Kimbrough MD Jul 23, 2017 12:54
--- NOTE | 2017-07-23 12:55 | ED PDOC ---
Post-Departure Follow-Up additionally ct abd/p faxed to [facility]. Jaki Kimbrough MD Jul 23, 2017 12:55
== END 2017-07-20 17:11 | disposition home or self-care (01) ==
LOC: M ED 14:00
DX: R31.9 Hematuria, unspecified (principal); N50.812 Left testicular pain; N50.3 Cyst of epididymis; Z85.46 Personal history of malignant neoplasm of prostate; Z85.51 Personal history of malignant neoplasm of bladder; Z79.899 Other long term (current) drug therapy; Z79.51 Long term (current) use of inhaled steroids; Z99.81 Dependence on supplemental oxygen; Z87.891 Personal history of nicotine dependence

== ENCOUNTER → 2017-07-24 | Outpatient (REF) | payer MEDICARE ==
[~2017-07-24] MED LIST changes: +PYRI1TAB5 PO
[2017-07-24 19:58] LABS: ANION GAP 9 MEQ/L (8-16); BLOOD UREA NITROGEN 19 MG/DL (7-18); CALCIUM LEVEL 8.8 MG/DL (8.8-10.2); CARBON DIOXIDE LEVEL 30 MEQ/L (21-32); CHLORIDE LEVEL 101 MEQ/L (98-107); CREATININE FOR GFR 1.01 MG/DL (0.70-1.30); GLOMERULAR FILTRATION RATE > 60.0 (>42); GLUCOSE, FASTING 144 MG/DL (83-110); MAGNESIUM LEVEL 2.1 MG/DL (1.8-2.4); POTASSIUM SERUM 4.4 MEQ/L (3.5-5.1); SODIUM LEVEL 140 MEQ/L (136-145)
== END ==
LOC: M SFHCCAPE 13:02
PROVIDERS: ATTEND Physician Assistant
DX: E87.6 Hypokalemia (principal)

== ENCOUNTER 2017-08-28 12:19 | Outpatient (RCR) | payer MEDICARE ==
[2017-09-14] MEDS ORDERED: CALC600T57 PO (05:30)
[2017-09-14] MEDS ORDERED: SULF-216 XX (05:30)
[2017-09-14] MEDS ORDERED: BACT800T5 PO (07:48)
[2017-09-14] MEDS ORDERED: PRED10TA2 PO (07:48)
[2017-09-14] MEDS ORDERED: BROV15NE INH (07:48)
[2017-09-14] MEDS ORDERED: OMEP40CA2 PO (07:48)
[2017-09-14] MEDS ORDERED: PRED5TA PO (07:48)
== END 2017-09-18 ==
LOC: M PR 12:19
PROVIDERS: ATTEND Internal Medicine Pulmonary Disease
DX: Z51.89 Encounter for other specified aftercare (principal); J43.1 Panlobular emphysema

== ENCOUNTER 2017-09-14 05:09 | Inpatient (IN) | payer MEDICARE ==
[~2017-09-14] VITALS: Ht 170.2 cm; Wt 80.8 kg
[2017-09-14] MEDS ORDERED: CALC600T57 PO (05:30)
[2017-09-14] MEDS ORDERED: SULF-216 XX (05:30)
[2017-09-14 06:05] LABS: ABG BASE EXCESS 6.7 (-2.0-2.0); ABG PARTIAL PRESSURE CO2 55.3 mmHg (35.0-45.0); ABG PARTIAL PRESSURE O2 121.8 mmHg (75.0-100.0); ABG STANDARD HCO3 30.6 MEQ/L (22.0-26.0); ABG TOTAL CO2 34.7 MEQ/L (23.0-31.0); ABG pH (ARTERIAL) 7.394 UNITS (7.350-7.450)
[2017-09-14 06:15] LABS: BASO # 0.1 10^3/uL (0.0-0.2); BASO % 0.6 % (0.0-1.0); EOS # 0.1 10^3/uL (0.0-0.50); EOS % 0.6 % (0.0-3.0); IMMATURE GRANULOCYTE % 1.2 % (0-0); LYMPH # 1.3 10^3/uL (1.5-4.5); LYMPH % 12.4 % (24.0-44.0); MEAN CORPUSCULAR HEMOGLOBIN 27.2 pg (27.0-33.0); MEAN CORPUSCULAR HGB CONC 30.8 g/dl (32.0-36.5); MEAN CORPUSCULAR VOLUME 88.2 fl (80.0-96.0); MONO # 0.5 10^3/uL (0.0-0.8); MONO % 4.5 % (0.0-5.0); NEUTROPHILS # 8.4 10^3/uL (1.8-7.7); NEUTROPHILS % 80.7 % (36.0-66.0); PLATELET COUNT, AUTOMATED 155 10^3/uL (150-450); RED CELL DISTRIBUTION WIDTH 13.7 % (11.5-14.5); WHITE BLOOD COUNT 10.5 10^3/uL (4.0-10.0)
[2017-09-14 06:22] VITALS: BP 116/82
[2017-09-14 06:35] LABS: ANION GAP 5 MEQ/L (8-16); BLOOD UREA NITROGEN 26 MG/DL (7-18); CARBON DIOXIDE LEVEL 35 MEQ/L (21-32); CHLORIDE LEVEL 101 MEQ/L (98-107); CREATININE FOR GFR 1.02 MG/DL (0.70-1.30); GLOMERULAR FILTRATION RATE > 60.0 (>42); GLUCOSE, FASTING 149 MG/DL (83-110); POTASSIUM SERUM 3.8 MEQ/L (3.5-5.1); SODIUM LEVEL 141 MEQ/L (136-145)
[2017-09-14] MEDS ORDERED: BISACODYL 5 MG TAB PO PRN (07:30)
[2017-09-14] MEDS ORDERED: ONDANSETRON 4MG/2ML VIAL (J2405) IV PRN (07:30)
[2017-09-14] MEDS ORDERED: ALBUTEROL SULFATE 2.5 MG/0.5 ML INH NEB SOLN NEB PRN (07:30)
[2017-09-14] MEDS ORDERED: OMEP40CA2 PO (07:48)
[2017-09-14] MEDS ORDERED: BACT800T5 PO (07:48)
[2017-09-14] MEDS ORDERED: PRED5TA PO (07:48)
[2017-09-14] MEDS ORDERED: PRED10TA2 PO (07:48)
[2017-09-14] MEDS ORDERED: BROV15NE INH (07:48)
--- NOTE | 2017-09-14 08:20 | REP ---
Clinical: Shortness of breath . Comparison: 07/18/2017 . Findings: The mediastinum and cardiac silhouette are stable and within normal limits for portable technique. The lung garcia are clear without acute consolidation, effusion, or pneumothorax. Skeletal structures are intact. Impression: No acute cardiopulmonary process appreciated. Signed by Jacky Rojas MD 09/14/2017 08:12 A
[2017-09-14] MEDS: methylPREDNISolone INJ 40 MG/1 ML VIAL (J2920) IV SCH ×2 (08:50→16:15)
[2017-09-14] MEDS: SENOKOT S TAB PO SCH ×2 (09:00→20:31)
[2017-09-14] MEDS: AZITHROMYCIN 250 MG TAB PO SCH (09:00)
[2017-09-14] MEDS: TIOTROPIUM INHALER/CAPSULE (SPIRIVA) INH SCH (09:17)
[2017-09-14] MEDS: BUDESONIDE 0.5 MG/2 ML INHALATION SUSPENSION INH SCH ×2 (09:17→19:27)
[2017-09-14] MEDS: IPRATROPIUM 0.5MG/ALBUTEROL 2.5MG INH SOL UD 3ML (DUONEB)(J7620) NEB SCH ×3 (09:17→19:27)
[2017-09-14] MEDS ORDERED: ENOXAPARIN 60 MG/0.6 ML SYR (J1650) As Ordered ONE (11:43)
[2017-09-14] MEDS: ENOXAPARIN 40 MG/0.4 ML SYRINGE (J1650) SC SCH (11:50)
[2017-09-14 14:00] VITALS: BP 120/98
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
[2017-09-14 16:00] VITALS: BP 138/80
[2017-09-14] MEDS: GABAPENTIN 300 MG CAP PO SCH (16:15)
[2017-09-14] MEDS: FORMOTEROL FUMARATE 20 MCG/2 ML INHALATION SOLUTION (PERFOROMIST) INH SCH (19:27)
[2017-09-14 20:00] VITALS: BP 106/64
[2017-09-14 23:59] VITALS: BP 109/64
[2017-09-15] MEDS: IPRATROPIUM 0.5MG/ALBUTEROL 2.5MG INH SOL UD 3ML (DUONEB)(J7620) NEB SCH ×2 (00:53→08:00)
[2017-09-15 04:00] VITALS: BP 117/64
[2017-09-15 07:58] VITALS: BP 105/62
[2017-09-15 08:01] LABS: BASO % 0.1 % (0.0-1.0); IMMATURE GRANULOCYTE % 1.1 % (0-0); LYMPH # 0.9 10^3/uL (1.5-4.5); LYMPH % 6.5 % (24.0-44.0); MEAN CORPUSCULAR HEMOGLOBIN 26.5 pg (27.0-33.0); MEAN CORPUSCULAR HGB CONC 30.9 g/dl (32.0-36.5); MEAN CORPUSCULAR VOLUME 85.8 fl (80.0-96.0); MONO # 0.4 10^3/uL (0.0-0.8); MONO % 2.9 % (0.0-5.0); NEUTROPHILS # 12.4 10^3/uL (1.8-7.7); NEUTROPHILS % 89.4 % (36.0-66.0); PLATELET COUNT, AUTOMATED 172 10^3/uL (150-450); RED CELL DISTRIBUTION WIDTH 13.3 % (11.5-14.5); WHITE BLOOD COUNT 13.9 10^3/uL (4.0-10.0)
[2017-09-15 08:14] LABS: ANION GAP 5 MEQ/L (8-16); BLOOD UREA NITROGEN 24 MG/DL (7-18); CALCIUM LEVEL 9.1 MG/DL (8.8-10.2); CARBON DIOXIDE LEVEL 35 MEQ/L (21-32); CHLORIDE LEVEL 101 MEQ/L (98-107); CREATININE FOR GFR 0.77 MG/DL (0.70-1.30); GLOMERULAR FILTRATION RATE > 60.0 (>42); GLUCOSE, FASTING 126 MG/DL (83-110); POTASSIUM SERUM 4.1 MEQ/L (3.5-5.1); SODIUM LEVEL 141 MEQ/L (136-145)
[2017-09-15] MEDS: TIOTROPIUM INHALER/CAPSULE (SPIRIVA) INH SCH (08:24)
[2017-09-15] MEDS: FORMOTEROL FUMARATE 20 MCG/2 ML INHALATION SOLUTION (PERFOROMIST) INH SCH (08:25)
[2017-09-15] MEDS: BUDESONIDE 0.5 MG/2 ML INHALATION SUSPENSION INH SCH (08:26)
[2017-09-15] MEDS ORDERED: BACTRIM 160MG/800MG DS TAB PO SCH (09:00)
--- NOTE | 2017-09-15 09:01 | ECGEPIP ---
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
[2017-09-15] MEDS: AZITHROMYCIN 250 MG TAB PO SCH (09:07)
[2017-09-15] MEDS: methylPREDNISolone INJ 40 MG/1 ML VIAL (J2920) IV SCH ×2 (09:07)
[2017-09-15] MEDS: SENOKOT S TAB PO SCH (09:07)
[2017-09-15] MEDS: ENOXAPARIN 40 MG/0.4 ML SYRINGE (J1650) SC SCH (09:07)
[2017-09-15] MEDS: GABAPENTIN 300 MG CAP PO SCH (09:07)
[2017-09-15] MEDS ORDERED: INFLUENZA VIRUS VACCINE HIGH DOSE 0.5 ML SYRINGE (90662) IM ONE (13:00)
--- NOTE | 2017-09-15 14:31 | DSES ---
DATE OF ADMISSION: 09/14/2017 DATE OF DISCHARGE: 09/15/2017 PRIMARY CARE PROVIDER: Elsy Moya PULMONARY: John Gamble DO UROLOGIST: Ej Varela MD DISCHARGE DIAGNOSES: 1. Chronic obstructive pulmonary disease (COPD) exacerbation. 2. Chronic respiratory failure with hypoxia, on 4 liter oxygen at home. 3. History of bladder cancer. 4. History of prostate cancer, under ongoing leuprolide. 5. History of calculus of bladder. 6. Leukocytosis, probably reactionary to steroid use. DISCHARGE MEDICATIONS: - albuterol sulfate two puffs inhalation every 4 hours as needed shortness of breath - albuterol nebulizer solution one vial four times a day as needed shortness of breath - Brovana 15 mcg inhalation twice a day - calcium D3 one tablet by mouth daily - fluticasone inhaler two puffs inhalation twice a day as needed shortness of breath - gabapentin 300 mg by mouth daily - Lupron one dose SC as directed - omeprazole 40 mg by mouth daily - prednisone 12.5 mg by mouth daily - Spiriva two puffs inhalation daily - Bactrim DS one tablet by mouth three times a week HOSPITAL COURSE: This is a 72-year-old male who presented to the hospital with acute onset shortness of breath during the night, which did not resolve after taking two treatments with his nebulizer solution. So, he called emergency medical services (EMS) and was brought to the hospital. In the emergency department (ED), the patient was diagnosed with COPD exacerbation. He received multiple nebulizers, and the patient was also noted to be in atrial flutter with rapid ventricular response, which was thought to be related to his nebulizers given by the EMS. The patient received one dose of diltiazem 35 mg intravenously with control of rate and subsequently spontaneous reversal to sinus rhythm. The duration of atrial flutter was very short, about 2 hours, before he spontaneously converted to sinus rhythm. So, he was not started on any oral anticoagulation. At present, the patient does not have any complaints. His vital signs are stable, and he is functionally at his baseline. So, he is discharged home in a stable condition. PHYSICAL EXAMINATION: VITAL SIGNS: Temperature 97.3, pulse 97, respiratory rate 19, blood pressure 105/62, pulse oximetry 96% with 3 liters nasal cannula. GENERAL: The patient awake, alert, oriented times three, lying down in bed in no acute distress. HEENT: Normocephalic, atraumatic. Moist mucous membranes. Anicteric eyes. CHEST: Poor overall air entry. No rhonchi or crackles. CARDIOVASCULAR: S1 and S2 regular, no rub, murmur, or gallop. ABDOMEN: Soft, nontender. Bowel sounds present. EXTREMITIES: No edema. LABORATORY DATA: WBC 13.9, hemoglobin 10.3, platelets 172. Sodium 141, potassium 4.1, chloride 101, bicarbonate 35, BUN 24, creatinine 0.7, glucose 126, calcium 9.1. Respiratory viral panel negative. Blood culture preliminary negative. Chest x-ray showed chronic emphysematous changes, no acute cardiopulmonary process. DISPOSITION: The patient is discharged home in a stable condition. DISCHARGE INSTRUCTIONS: The patient to followup with primary care provider in 1 week. Diet as tolerated. Activity as tolerated. MTDD
== END 2017-09-15 13:31 | disposition home or self-care (01) | DRG 191 ==
LOC: M ED 05:09 → M ED INP 07:23 → M PCU 13:31
PROVIDERS: ADMIT Internal Medicine Nephrology; ATTEND Internal Medicine Nephrology
DX: J44.1 Chronic obstructive pulmonary disease with (acute) exacerbation (principal); J96.11 Chronic respiratory failure with hypoxia; I48.92 Unspecified atrial flutter; C61 Malignant neoplasm of prostate; K21.9 Gastro-esophageal reflux disease without esophagitis; Z99.81 Dependence on supplemental oxygen; Z98.41 Cataract extraction status, right eye; Z98.42 Cataract extraction status, left eye; Z79.52 Long term (current) use of systemic steroids; Z79.899 Other long term (current) drug therapy

== ENCOUNTER 2017-09-19 09:12 | Outpatient (RCR) | payer MEDICARE | END 2017-10-19 | LOC: M PR 09:12 | DX: Z51.89 Encounter for other specified aftercare (principal); J43.1 Panlobular emphysema | CPT/HCPCS: G0424 ==

== ENCOUNTER 2017-10-21 09:27 | Outpatient (RCR) | payer MEDICARE | END 2017-11-19 | LOC: M PR 09:27 | DX: Z51.89 Encounter for other specified aftercare (principal); J43.1 Panlobular emphysema ==

== ENCOUNTER → 2017-11-21 | Outpatient (CLI) | payer MEDICARE ==
[2017-11-21 18:08] LABS: PROSTATIC SPECIFIC AG MONITOR < 0.01 NG/ML (< 4.0)
== END ==
LOC: M SMT 14:22
DX: C61 Malignant neoplasm of prostate (principal)
CPT/HCPCS: 84153

== ENCOUNTER → 2017-12-10 | Outpatient (REF) | payer MEDICARE | LOC: M SMT 16:56 | DX: C67.9 Malignant neoplasm of bladder, unspecified (principal) | CPT/HCPCS: 88108 ==

== ENCOUNTER → 2017-12-12 | Outpatient (CLI) | payer MEDICARE | LOC: M RAD 13:49 | DX: R91.8 Other nonspecific abnormal finding of lung field (principal); J44.9 Chronic obstructive pulmonary disease, unspecified | CPT/HCPCS: 71250 ==

== ENCOUNTER 2018-02-19 16:31 | Emergency (ER) | payer MEDICARE ==
[2018-02-19 17:19] LABS: BASO % 0.4 % (0.0-1.0); EOS % 0.3 % (0.0-3.0); HEMATOCRIT 38.1 % (42.0-52.0); HEMOGLOBIN 11.8 g/dl (13.5-17.5); IMMATURE GRANULOCYTE % 0.6 % (0-3.0); LYMPH # 1.1 10^3/uL (1.5-4.5); LYMPH % 11.7 % (24.0-44.0); MEAN CORPUSCULAR HEMOGLOBIN 25.9 pg (27.0-33.0); MEAN CORPUSCULAR VOLUME 83.7 fl (80.0-96.0); MONO # 0.4 10^3/uL (0.0-0.8); PLATELET COUNT, AUTOMATED 179 10^3/uL (150-450); RED BLOOD COUNT 4.55 10^6/uL (4.30-6.10); RED CELL DISTRIBUTION WIDTH 14.1 % (11.5-14.5); WHITE BLOOD COUNT 9.7 10^3/uL (4.0-10.0)
[2018-02-19 17:27] LABS: KETONE, URINE AUTO RFX NEGATIVE (NEGATIVE); LEUKOCYTE ESTERASE UR AUTO RFX NEGATIVE (NEGATIVE); MUCUS, URINE RFX SMALL (NEGATIVE); NITRITE, URINE AUTO RFX NEGATIVE (NEGATIVE); RBC, URINE AUTO RFX 1 /HPF (0-3); SPECIFIC GRAVITY UR AUTO RFX 1.009 (1.002-1.035); SQUAM EPITHELIAL CELL UR AURFX 0 /HPF (0-6); WBC, URINE AUTO RFX 1 /HPF (0-3)
[2018-02-19 17:34] LABS: INR 0.91; PROTHROMBIN TIME 12.3 SECONDS (12.4-14.5)
[2018-02-19 17:52] LABS: ALBUMIN 3.7 GM/DL (3.2-5.2); ALBUMIN/GLOBULIN RATIO 1.23 (1.00-1.93); ALKALINE PHOSPHATASE 111 U/L (45-117); ALT/SGPT 18 U/L (12-78); ANION GAP 4 MEQ/L (8-16); AST/SGOT 12 U/L (7-37); BILIRUBIN,DIRECT < 0.1 MG/DL (0.0-0.2); BILIRUBIN,TOTAL 0.3 MG/DL (0.2-1.0); BLOOD UREA NITROGEN 19 MG/DL (7-18); CALCIUM LEVEL 8.9 MG/DL (8.8-10.2); CARBON DIOXIDE LEVEL 34 MEQ/L (21-32); CHLORIDE LEVEL 103 MEQ/L (98-107); CPK CREATINE PHOSPHOKINASE 47 U/L (39-308); CREATININE FOR GFR 1.02 MG/DL (0.70-1.30); GLOMERULAR FILTRATION RATE > 60.0 (>42); GLUCOSE, FASTING 112 MG/DL (70-100); LIPASE 131 U/L (73-393); POTASSIUM SERUM 4.7 MEQ/L (3.5-5.1); SODIUM LEVEL 141 MEQ/L (136-145); TOTAL PROTEIN 6.7 GM/DL (6.4-8.2); TROPONIN I < 0.02 NG/ML (< 0.10)
[2018-02-19 17:52] LABS: LACTIC ACID SEPSIS PROTOCOL 1.3 MMOL/L (0.4-2.0)
[2018-02-19 17:53] LABS: CK-MB VALUE MASS 1.4 NG/ML (<3.6); MB/CK RELATIVE INDEX 2.97 (< OR =4)
[2018-02-19] MEDS ORDERED: ISOVUE-370 76% 100ML VIAL (Q9967) As Ordered (18:07)
[2018-02-19] MEDS: GI COCKTAIL 50ML BTL(HYOSCYAMINE/MAALOX/LIDOCAINE VISCOUS)(1:3:1) PO (21:26)
== END 2018-02-19 21:48 | disposition home or self-care (01) ==
LOC: M ED 16:31
DX: K29.70 Gastritis, unspecified, without bleeding (principal); Z79.52 Long term (current) use of systemic steroids; Z91.048 Other nonmedicinal substance allergy status; Z79.899 Other long term (current) drug therapy; Z87.891 Personal history of nicotine dependence
CPT/HCPCS: Q9967

== ENCOUNTER → 2018-08-19 | Outpatient (CLI) | payer MEDICARE | LOC: M CLY 13:09 | DX: J44.1 Chronic obstructive pulmonary disease with (acute) exacerbation (principal); J84.9 Interstitial pulmonary disease, unspecified | CPT/HCPCS: 71046 ==

== ENCOUNTER 2018-10-06 17:12 | Emergency (ER) | payer MEDICARE ==
[2018-10-06] MEDS: IPRATROPIUM 0.5MG/ALBUTEROL 2.5MG INH SOL UD 3ML (DUONEB)(J7620) NEB ×3 (17:38→18:16)
[2018-10-06] MEDS: methylPREDNISolone INJ 125 MG/2 ML VIAL (J2930) IV (17:47)
[2018-10-06] MEDS: ASPIRIN 81 MG CHEW TABLET PO (17:47)
[2018-10-06 17:58] LABS: VENOUS BASE EXCESS 3.4 (-2.0-2.0); VENOUS HCO3 31.3 MEQ/L (23.0-27.0); VENOUS O2 SATURATION 85.8 % (60.0-80.0); VENOUS PARTIAL PRESSURE CO2 63.4 mmHg (38.0-50.0); VENOUS PARTIAL PRESSURE O2 53.9 mmHg (30.0-50.0); VENOUS PH 7.312 UNITS (7.330-7.430); VENOUS STANDARD HCO3 27.2 MEQ/L; VENOUS TOTAL CO2 33.3 MEQ/L (24.0-28.0)
[2018-10-06 18:03] LABS: BASO # 0.1 10^3/uL (0.0-0.2); BASO % 0.6 % (0.0-1.0); EOS # 0.1 10^3/uL (0.0-0.50); EOS % 0.5 % (0.0-3.0); HEMATOCRIT 41.3 % (42.0-52.0); HEMOGLOBIN 12.6 g/dl (13.5-17.5); IMMATURE GRANULOCYTE % 0.9 % (0-3.0); LYMPH % 18.9 % (24.0-44.0); MEAN CORPUSCULAR HEMOGLOBIN 25.8 pg (27.0-33.0); MEAN CORPUSCULAR HGB CONC 30.5 g/dl (32.0-36.5); MEAN CORPUSCULAR VOLUME 84.5 fl (80.0-96.0); MONO # 0.6 10^3/uL (0.0-0.8); MONO % 5.6 % (0.0-5.0); NEUTROPHILS # 7.6 10^3/uL (1.8-7.7); NEUTROPHILS % 73.5 % (36.0-66.0); PLATELET COUNT, AUTOMATED 180 10^3/uL (150-450); RED BLOOD COUNT 4.89 10^6/uL (4.30-6.10); RED CELL DISTRIBUTION WIDTH 14.5 % (11.5-14.5); WHITE BLOOD COUNT 10.3 10^3/uL (4.0-10.0)
[2018-10-06 18:17] LABS: INR 0.93; PROTHROMBIN TIME 12.5 SECONDS (12.1-14.4)
[2018-10-06 18:31] LABS: ALBUMIN 3.5 GM/DL (3.2-5.2); ALBUMIN/GLOBULIN RATIO 1.13 (1.00-1.93); ALKALINE PHOSPHATASE 100 U/L (45-117); ALT/SGPT 23 U/L (12-78); ANION GAP 6 MEQ/L (8-16); AST/SGOT 19 U/L (7-37); BILIRUBIN,DIRECT < 0.1 MG/DL (0.0-0.2); BILIRUBIN,TOTAL 0.4 MG/DL (0.2-1.0); BLOOD UREA NITROGEN 24 MG/DL (7-18); CALCIUM LEVEL 8.5 MG/DL (8.8-10.2); CARBON DIOXIDE LEVEL 32 MEQ/L (21-32); CHLORIDE LEVEL 103 MEQ/L (98-107); CPK CREATINE PHOSPHOKINASE 59 U/L (39-308); CREATININE FOR GFR 0.93 MG/DL (0.70-1.30); GLOMERULAR FILTRATION RATE > 60.0 (>42); GLUCOSE, FASTING 103 MG/DL (70-100); MB/CK RELATIVE INDEX 2.71 (< OR =4); POTASSIUM SERUM 4.5 MEQ/L (3.5-5.1); SODIUM LEVEL 141 MEQ/L (136-145); TOTAL PROTEIN 6.6 GM/DL (6.4-8.2); TROPONIN I < 0.02 NG/ML (< 0.10)
[2018-10-06] MEDS: MOXIFLOXACIN 400 MG TAB PO (19:00)
== END 2018-10-06 19:13 | disposition home or self-care (01) ==
LOC: M ED 17:12
DX: J44.1 Chronic obstructive pulmonary disease with (acute) exacerbation (principal); R00.0 Tachycardia, unspecified; R94.31 Abnormal electrocardiogram [ECG] [EKG]; J84.10 Pulmonary fibrosis, unspecified; I51.9 Heart disease, unspecified; I10 Essential (primary) hypertension; Z85.46 Personal history of malignant neoplasm of prostate; Z87.891 Personal history of nicotine dependence; Z79.899 Other long term (current) drug therapy; Z91.89 Other specified personal risk factors, not elsewhere classified
CPT/HCPCS: J2930

== ENCOUNTER → 2018-10-27 | Outpatient (CLI) | payer MEDICARE ==
[~2018-10-27] MED LIST changes: +AVEL1TAB3 PO; +BROV15NE INH; +CALC600T57 PO; +CARA1TAB6 PO; -GABA-282 PO; +GABA-843 PO; +OMEP40CA2 PO; +PRED5TA PO; +PROT1TAB2 PO; +SERT50TA PO; +SULF-216 XX
--- NOTE | 2018-10-27 18:22 | REP ---
LEFT UPPER EXTREMITY DUPLEX VEINS: HISTORY: Swelling. There are no filling defects in the deep venous system. The deep venous system is patent. IMPRESSION: There is no deep venous thrombosis. Electronically Signed by Ricki Son MD 10/27/2018 06:45 P
[2018-10-27 18:50] LABS: BASO # 0.1 10^3/uL (0.0-0.2); BASO % 0.4 % (0.0-1.0); EOS # 0.1 10^3/uL (0.0-0.50); EOS % 0.6 % (0.0-3.0); HEMATOCRIT 41.9 % (42.0-52.0); HEMOGLOBIN 12.7 g/dl (13.5-17.5); LYMPH # 1.9 10^3/uL (1.5-4.5); LYMPH % 15.3 % (24.0-44.0); MEAN CORPUSCULAR HEMOGLOBIN 25.3 pg (27.0-33.0); MEAN CORPUSCULAR HGB CONC 30.3 g/dl (32.0-36.5); MEAN CORPUSCULAR VOLUME 83.5 fl (80.0-96.0); MONO # 0.7 10^3/uL (0.0-0.8); MONO % 5.9 % (0.0-5.0); NEUTROPHILS # 9.6 10^3/uL (1.8-7.7); NEUTROPHILS % 76.8 % (36.0-66.0); PLATELET COUNT, AUTOMATED 205 10^3/uL (150-450); RED BLOOD COUNT 5.02 10^6/uL (4.30-6.10); WHITE BLOOD COUNT 12.5 10^3/uL (4.0-10.0)
[2018-10-27 19:26] LABS: ALBUMIN 3.7 GM/DL (3.2-5.2); ALT/SGPT 23 U/L (12-78); BILIRUBIN,TOTAL 0.3 MG/DL (0.2-1.0); BLOOD UREA NITROGEN 25 MG/DL (7-18); CALCIUM LEVEL 8.8 MG/DL (8.8-10.2); CARBON DIOXIDE LEVEL 31 MEQ/L (21-32); CHLORIDE LEVEL 101 MEQ/L (98-107); CREATININE FOR GFR 0.99 MG/DL (0.70-1.30); GLOMERULAR FILTRATION RATE > 60.0 (>42); GLUCOSE, FASTING 105 MG/DL (70-100); LIPASE 124 U/L (73-393); POTASSIUM SERUM 4.5 MEQ/L (3.5-5.1); PROSTATIC SPECIFIC AG MONITOR < 0.01 NG/ML (< 4.00); SODIUM LEVEL 138 MEQ/L (136-145); TOTAL PROTEIN 6.7 GM/DL (6.4-8.2)
== END ==
LOC: M RAD 17:17
PROVIDERS: ATTEND Physician Assistant
DX: R10.13 Epigastric pain (principal); Z85.46 Personal history of malignant neoplasm of prostate; M79.89 Other specified soft tissue disorders
CPT/HCPCS: 36415; 80053; 83690; 84153; 84443; 85025; 93971; G0463

== ENCOUNTER → 2019-02-27 | Outpatient (REF) | payer MEDICARE ==
[~2019-02-27] MED LIST changes: +SERT-141 PO; -SERT50TA PO
== END ==
LOC: M LAB REF 13:11
PROVIDERS: ATTEND Internal Medicine Pulmonary Disease
DX: R05 Cough (principal)

== ENCOUNTER → 2021-03-16 | Outpatient (REF) | payer MEDICARE ==
[~2021-03-16] MED LIST changes: +CALC1TAB26 PO; +FLOV250A2 INH; +GABA-282 PO; -GABA-843 PO; +IPRA0.00 NEB; +LEVA1TAB2 PO; +OMEP1CAP73; +OMEP1CAP73 PO; -OMEP20CA3; -OMEP20CA3 PO; -OMEP40CA2 PO; +OMEP40CA97 PO; +VENTAER INH
== END ==
LOC: M LAB REF 15:55
PROVIDERS: ATTEND Internal Medicine Pulmonary Disease
DX: R30.0 Dysuria (principal)

== ENCOUNTER → 2021-09-26 | Outpatient (REF) ==
[~2021-09-26] MED LIST changes: +FLOV250A INH; -FLOV250A2 INH; +OMEP40CA4 PO; -OMEP40CA97 PO
== END ==
LOC: M LABSMTC 12:36
PROVIDERS: ATTEND Pediatrics
DX: Z20.822 Contact with and (suspected) exposure to COVID-19 (principal)

== ENCOUNTER → 2021-10-18 | Outpatient (REF) | payer MEDICARE ==
[2021-10-18 15:57] LABS: APPEARANCE, URINE CLOUDY (CLEAR); BACTERIA, URINE AUTO 1+ (NEGATIVE); BILIRUBIN, URINE AUTO NEGATIVE (NEGATIVE); BLOOD, URINE BLOOD 1+ (NEGATIVE); COLOR, URINE YELLOW (YELLOW); GLUCOSE, URINE (UA) AUTO NEGATIVE (NEGATIVE); KETONE, URINE AUTO NEGATIVE (NEGATIVE); LEUKOCYTE ESTERASE, URINE AUTO 3+ (NEGATIVE); MUCUS, URINE SMALL (NEGATIVE); NITRITE, URINE AUTO NEGATIVE (NEGATIVE); PROTEIN, URINE AUTO 2+ mg/dL (NEGATIVE); RBC, URINE AUTO 14 /HPF (0-3); SPECIFIC GRAVITY URINE AUTO 1.017 (1.002-1.035); SQUAMOUS EPITHELIAL CELL UR AU 0 /HPF (0-6); UROBILINOGEN, URINE AUTO 0.2 mg/dL (0.0-2.0); WBC, URINE AUTO TNTC /HPF (0-3)
== END ==
LOC: M SFHCCAPE 14:19
PROVIDERS: ATTEND Physician Assistant
DX: R30.0 Dysuria (principal)

== ENCOUNTER → 2021-10-29 | Outpatient (REF) | payer MEDICARE ==
[2021-10-29 15:59] LABS: APPEARANCE, URINE CLOUDY (CLEAR); BACTERIA, URINE AUTO 1+ (NEGATIVE); BILIRUBIN, URINE AUTO NEGATIVE (NEGATIVE); BLOOD, URINE BLOOD 2+ (NEGATIVE); CALCIUM OXALATE CRYSTALS SMALL; COLOR, URINE YELLOW (YELLOW); GLUCOSE, URINE (UA) AUTO NEGATIVE (NEGATIVE); KETONE, URINE AUTO NEGATIVE (NEGATIVE); LEUKOCYTE ESTERASE, URINE AUTO 3+ (NEGATIVE); MUCUS, URINE SMALL (NEGATIVE); NITRITE, URINE AUTO NEGATIVE (NEGATIVE); PROTEIN, URINE AUTO 2+ mg/dL (NEGATIVE); RBC, URINE AUTO 71 /HPF (0-3); SPECIFIC GRAVITY URINE AUTO 1.017 (1.002-1.035); SQUAMOUS EPITHELIAL CELL UR AU 1 /HPF (0-6); UROBILINOGEN, URINE AUTO 0.2 mg/dL (0.0-2.0); WBC, URINE AUTO TNTC /HPF (0-3)
== END ==
LOC: M SFHCCAPE 15:35
PROVIDERS: ATTEND Physician Assistant
DX: R30.0 Dysuria (principal)

== ENCOUNTER → 2021-12-20 | Outpatient (REF) | payer MEDICARE ==
[2021-12-20 16:08] LABS: APPEARANCE, URINE CLOUDY (CLEAR); BACTERIA, URINE AUTO 1+ (NEGATIVE); BILIRUBIN, URINE AUTO 2+ (NEGATIVE); BLOOD, URINE BLOOD 2+ (NEGATIVE); COLOR, URINE AMBER (YELLOW); GLUCOSE, URINE (UA) AUTO NEGATIVE (NEGATIVE); KETONE, URINE AUTO NEGATIVE (NEGATIVE); LEUKOCYTE ESTERASE, URINE AUTO 3+ (NEGATIVE); MUCUS, URINE SMALL (NEGATIVE); NITRITE, URINE AUTO POSITIVE (NEGATIVE); PROTEIN, URINE AUTO 2+ mg/dL (NEGATIVE); RBC, URINE AUTO 54 /HPF (0-3); SPECIFIC GRAVITY URINE AUTO 1.029 (1.002-1.035); SQUAMOUS EPITHELIAL CELL UR AU 2 /HPF (0-6); UROBILINOGEN, URINE AUTO 0.2 mg/dL (0.0-2.0); WBC, URINE AUTO TNTC /HPF (0-3)
[2021-12-20 16:10] LABS: BASO % 0.6 % (0.0-1.0); EOS # 0.1 10^3/uL (0.0-0.5); EOS % 1.5 % (0.0-3.0); HEMATOCRIT 34.8 % (42.0-52.0); HEMOGLOBIN 9.9 g/dl (13.5-17.5); LYMPH % 14.8 % (24.0-44.0); MEAN CORPUSCULAR HEMOGLOBIN 25.8 pg (27.0-33.0); MEAN CORPUSCULAR HGB CONC 28.4 g/dl (32.0-36.5); MEAN CORPUSCULAR VOLUME 90.9 fl (80.0-96.0); MONO # 0.3 10^3/uL (0.0-0.8); MONO % 3.8 % (2.0-8.0); NEUTROPHILS # 5.3 10^3/uL (1.5-8.5); NEUTROPHILS % 79.1 % (36.0-66.0); PLATELET COUNT, AUTOMATED 121 10^3/uL (150-450); RED BLOOD COUNT 3.83 10^6/uL (4.30-6.10); WHITE BLOOD COUNT 6.6 10^3/uL (4.0-10.0)
[2021-12-20 18:30] LABS: BLOOD UREA NITROGEN 22 MG/DL (7-18); CALCIUM LEVEL 8.7 MG/DL (8.8-10.2); CARBON DIOXIDE LEVEL 37 MEQ/L (21-32); CHLORIDE LEVEL 103 MEQ/L (98-107); CREATININE FOR GFR 0.75 MG/DL (0.70-1.30); GLOMERULAR FILTRATION RATE > 60.0 (>42); GLUCOSE, FASTING 94 MG/DL (70-100); POTASSIUM SERUM 3.9 MEQ/L (3.5-5.1); SODIUM LEVEL 142 MEQ/L (136-145)
[2021-12-20 18:31] LABS: ALBUMIN 3.6 GM/DL (3.2-5.2); ALT/SGPT 19 U/L (12-78); BILIRUBIN,TOTAL 0.3 MG/DL (0.2-1.0); THYROID STIMULATING HORMONE 0.974 uIU/ML (0.358-3.740); TOTAL 25(OH) VITAMIN D 11.4 NG/ML (30.0-100.0); TOTAL PROTEIN 6.2 GM/DL (6.4-8.2); VITAMIN B12 LEVEL 438 PG/ML
== END ==
LOC: M SFHCCAPE 11:18
PROVIDERS: ATTEND Physician Assistant
DX: R30.0 Dysuria (principal); Z79.899 Other long term (current) drug therapy